=== PATIENT | male | born 1985 | race Caucasian/White ===

== ENCOUNTER 2020-12-17 04:39 | Observation (INO) | payer OTHER, SELFPAY ==
[2020-12-17] VITALS (18 sets, daily range): BP systolic 140–202; BP diastolic 69–188; PULSE 80–96; RESP 16–22; TEMP 36.2–38; O2SAT 97–100; BMI 31.6
--- NOTE | ~2020-12-17 | CT_ITS ---
EXAMINATION: CT abdomen pelvis w con DATE: 12/17/2020 08:36 INDICATION: Diffuse abdominal pain and cyclic vomiting. TECHNIQUE: Computed tomography (CT) of the abdomen and pelvis was performed with 100 mL Omnipaque-350 intravenous contrast. Automated exposure control and iterative reconstruction technique were employe d. The dose-length product was 1020.19 mGy-cm. COMPARISON: 02/13/2016 FINDINGS: Lung bases are clear. Visualized inferior heart is normal. No pericardial or pleural effusion. Liver, gallbladder, spleen, pancreas, bilateral adrenal glands and kidneys are normal. Normal appendix. The re is diffuse wall thickening throughout the colon most prominent in the sigmoid colon and rectum wer e demonstrates slightly greater than simple fluid attenuation. In the ascending and transverse colon. Wall thickening is of slightly lower than fluid attenuation suggestive of fatty infiltration which c ould be related to body habitus or response to recurrent inflammation. There is also seen at the dist al ileum. No bowel obstruction. No pneumatosis, abscess or free intraperitoneal gas or fluid. Bladder is normal. Prostatomegaly. Minimal scattered atherosclerotic ossification along the abdominal aorta. No evident stenosis of the aorta or its major branch vessels. No pathologically enlarged abdominal o r pelvic lymphadenopathy. Mild thoracolumbar spondylosis with small Schmorl's nodes along many of th e endplates. IMPRESSION: 1. Wall thickening of the colon which appears primarily due to fatty infiltration proximally and more prominent with more edematous appearance in the distal colon suspicious for acute on chronic colitis . Differential would include infection, inflammatory bowel disease including ulcerative colitis or Cr ohn's disease or less likely ischemic colitis. Reviewed, dictated and finalized at location A. IMPRESSION: 1. Wall thickening of the colon which appears primarily due to fatty infiltrati on proximally and more prominent with more edematous appearance in the distal c olon suspicious for acute on chronic colitis. Differential would include infect ion, inflammatory bowel disease including ulcerative colitis or Crohn's disease or less likely ischemic colitis.
--- NOTE | 2020-12-17 05:07 | ED.ABDPAIN ---
HPI - Abdominal Pain General Chief Complaint: Abdominal Pain <Toi Roque MD - Last Filed: 12/17/20 16:30> Stated Complaint: n/v abd pain <Toi Roque MD - Last Filed: 12/17/20 16:30> Time Seen by Provider: 12/17/20 04:43 <Toi Roque MD - Last Filed: 12/17/20 16:30> History of Present Illness HPI narrative: 35 yo male w/ h/o cyclic vomiting syndrome presents to the ED for vomiting. He has had vomiting since last night around 2300. This is associated with generalized abdoinal pain. These are the same symptoms he has had from [facility] in the past. <Toi Roque MD - Last Filed: 12/17/20 16:30> Related Data Home Medications: Home Medications Medication Instructions Recorded Confirmed No Home Medications 12/17/20 12/17/20 <Toi Roque MD - Last Filed: 12/17/20 16:30> Allergies/Adverse Reactions: Allergies Allergy/AdvReac Type Severity Reaction Status Date / Time cyclobenzaprine AdvReac Intermediate Dizziness Verified 12/17/20 06:29 <Toi Roque MD - Last Filed: 12/17/20 16:30> Review of Systems Review of Systems: All systems reviewed & are unremarkable except as noted in HPI and below <Toi Rqoue MD - Last Filed: 12/17/20 16:30> Constitutional: Constitutional: Denies fever(s) <Toi Roque MD - Last Filed: 12/17/20 16:30> Cardiovascular: Cardiovascular: Denies chest pain <Toi Roque MD - Last Filed: 12/17/20 16:30> Respiratory: Respiratory: Denies dyspnea <Toi Roque MD - Last Filed: 12/17/20 16:30> Gastrointestinal: Gastrointestinal: Reports as per HPI <Toi Roque MD - Last Filed: 12/17/20 16:30> Genitourinary: Genitourinary: Reports no additional male genitourinary complaints <Toi Roque MD - Last Filed: 12/17/20 16:30> Neurologic: Reports system reviewed and no additional complaints, except as documented <Toi Roque MD - Last Filed: 12/17/20 16:30> [facility] Past Medical History Medical History: Medical History Cyclic vomiting syndrome Depression with anxiety Hiatal hernia noted by EGD HTN (hypertension), benign <Toi Roque MD - Last Filed: 12/17/20 16:30> Surgical History Surgical History: Surgical History Hx of hand surgery <Toi Roque MD - Last Filed: 12/17/20 16:30> Family History Family History: Family History Other Lung cancer <Toi Roque MD - Last Filed: 12/17/20 16:30> Social History Social History: Social History Social History: He lives at home with his and 2 sons. He smokes 3/4 of a pack per day for the past 17 years. He was a heavy alcohol user mostly on weekends but has quit alcohol in August of this year. He is a full code. Nominates his to be the individual who would make medical decisions for him if he is unable. He denies drug use except does smoke marijuana on occasion. Smoking packs per day: 0.5 Smoking cigarettes per day: 10.0 Years smoked: 20 Smoking pack-years: 10.00 Smoking status: Current every day smoker Tobacco type: cigarettes Alcohol intake: never Substance use: former Substance use type: marijuana Living arrangements: with family Gender identity (if verbalized by the patient): Male Spiritual care concerns: No <Toi Roque MD - Last Filed: 12/17/20 16:30> Exam Const: General: no acute distress, alert and ill appearing <Toi Roque MD - Last Filed: 12/17/20 16:30> Orientation/consciousness: patient oriented x3 <Toi Roque MD - Last Filed: 12/17/20 16:30> HENMT: Head: normal to inspection <Toi Roque MD - Last Filed: 12/17/20 16:30> Resp: Effort & Inspection: normal
[2020-12-17] MEDS: PROMETHAZINE HCL 25 MG/ML AMPUL 12.5 MG IV PUSH (05:16)
[2020-12-17] MEDS: HALOPERIDOL LACTATE 5 MG/ML VIAL IV PUSH (05:17)
[2020-12-17] MEDS: LACTATED RINGERS 2,000 ML 999 ML IV CONT (05:23)
[2020-12-17 05:28] LABS: Basophils Percent Auto 0.2 % (0.2-1.2); Hematocrit 48.4 % (42.0-52.0); Immature Granulocyte Absolute 0.08 K/mm3 (0.00-0.031); Immature Granulocyte Percent A 0.4 % (0-0.5); Lymphocytes Absolute Auto 0.96 K/mm3 (0.9-3.2); Lymphocytes Percent Auto 5.1 % (18.3-44.2); Mean Corpuscular HGB Conc 33.1 g/dl (32-36); Mean Corpuscular Hemoglobin 28.3 pg (26-34); Mean Corpuscular Volume 85.5 fl (80-100); Mean Platelet Volume 12.5 fl (7.4-10.4); Monocytes Absolute Auto 0.2 K/mm3 (0.1-0.6); Monocytes Percent Auto 1.1 % (2.6-8.5); Neutrophils Absolute Auto 17.7 K/mm3 (1.3-6.7); Neutrophils Percent Auto 93.2 % (45.5-73.1); Platelet Count Result 301 k/mm3 (150-375); Red Blood Count 5.66 M/mm3 (4.6-6.20); Red Cell Distribution Width 12.6 % (11.5-14.5); White Blood Count 18.9 K/mm3 (4.5-10.0)
--- NOTE | 2020-12-17 05:35 | PC.NURSE ---
Pt voided approx 100cc clear dark yellow urine per urinal. States is not feeling any better but appears much more relaxed and not actively writhing or vomiting.
--- NOTE | 2020-12-17 05:55 | PC.NURSE ---
Pt appears to be asleep on stretcher. Mother at bedside states no further emesis.
[2020-12-17 05:56] LABS: Add Urine Microscopic? YES; Appearance Urine Clear (Clear); Bacteria Urine Trace /hpf; Bilirubin Urine 1+ (Negative); Blood Urine Negative (Negative); Color Urine Amber (Yellow); Glucose Urine UA Negative (Negative); Ketones Urine 2+ mg/dL (Negative); Leukocyte Esterase Ur Negative LEU/UL (Negative); Mucus Urine Heavy /lpf; Nitrate Urine Negative (Negative); Protein Urine 2+ mg/dL (Negative); RBC Urine 0-2 /hpf (0-2); WBC Urine 0-3 /hpf
[2020-12-17 05:57] LABS: Specific Grav Ur 1.034 (1.001-1.035)
--- NOTE | 2020-12-17 06:19 | PC.NURSE ---
Addendum entered by Rolan Riley RN 12/17/20 06:21: Dr. Roque made aware. Original Note: Pt awake now states no relief from meds or IVF. States remains nauseated.
--- NOTE | 2020-12-17 06:30 | PC.NURSE ---
radio technician at bedside attempting blood draw.
[2020-12-17] MEDS: ONDANSETRON INJ 4 MG/2 ML VIAL IV PUSH (06:38)
[2020-12-17] MEDS: LORazepam INJ (*CRX) 2 MG/ML VIAL 1 MG IV PUSH (06:41)
--- NOTE | 2020-12-17 07:03 | PC.NURSE ---
Pt's bp remains elevated, however pt appears to be much more comfortable. Dr. Cunningham made aware.
[2020-12-17] MEDS: SODIUM CHLORIDE 0.9% IV 1,000 ML 999 ML IV CONT (07:08)
--- NOTE | 2020-12-17 07:08 | PC.NURSE ---
Dr. Cunningham made aware of pt's bp being elevated.
--- NOTE | 2020-12-17 07:15 | PC.NURSE ---
Report to STEFFANIE Raphael, to continue care.
[2020-12-17 07:19] LABS: Alanine Aminotransferase 19 U/L (4-50); Albumin Level 4.6 g/dL (3.5-5.1); Alkaline Phosphatase 94 U/L (38-126); Anion Gap 13 mmol/L (8-16); Aspartate Amino Transferase 47 U/L (17-59); Bilirubin,Total 1.3 mg/dL (0.2-1.3); Blood Urea Nitrogen 14 mg/dL (9-20); Calcium 9.5 mg/dL (8.4-10.2); Carbon Dioxide 15 mmol/L (22-30); Chloride 106 mmol/L (98-107); Estimated CRCL calculation 159 ml/min; Estimated Glomerular Filt Rate > 60; Glucose 124 mg/dL (65-110); Lipase 152 U/L (23-300); Sodium 134 mmol/L (137-145)
[2020-12-17 08:29] LABS: Reflex Lactic Acid Yes or No Add Lactic
[2020-12-17 09:05] LABS: Lactic Acid 1.3 mmol/L (0.7-2.1)
--- NOTE | 2020-12-17 11:11 | PC.NURSE ---
This patient, Jonny Khan, was admitted to Medical Room 261-01. Patient/family oriented to hospital policies and general routines including ID bracelet, bed and alarms, visiting hours, pain management, procedures, bathroom and other care routines, personal items, smoking policy, room service/diet, and visiting hours. Information on how to activate the Rapid Response Team has been discussed. Patient/Family are encouraged to report perceived risks to care and to ask questions if they do not understand what they are told or what they should do.
[2020-12-17] MEDS: SODIUM CHLORIDE 0.9% IV 1,000 ML 125 ML IV CONT (11:16)
--- NOTE | 2020-12-17 12:44 | PM.IMHP ---
H&P: HPI History of Present Illness Date/Time: 12/17/20 12:44 Chief Complaint: Nausea and vomiting Narrative: 35yo male with history of cyclic vomiting presents to the ED complaints of nausea and vomiting. He has had a long history of cyclic vomiting. This last episode was 6-8 months ago. He has quit drinking alcohol after he was educated that this might be a trigger. He was doing well until around 11:00 p.m. the night before admission when he developed nausea and vomiting. He has had emesis over 20 times. Vomiting worsened to dry heaves. No hematemesis. No fevers. Does become diaphoretic with chills at times. There is no known trigger. No excessive stress at home or work. He does have abdominal pain which is typical when he has a flare of his cyclic vomiting. The abdominal pain feels like burning and twisting sensation. He does have diarrheal stools but no melena or hematochezia. He does hyperventilate prior to a bout of the emesis. He does get tingling in his fingers when he hyperventilates. No vision changes. No eye pain. No rashes. He has never had a colonoscopy; EGD about 4 yrs ago showing hiatal hernia. Review of systems otherwise was unremarkable. Because of the persistent symptoms, patient presented to the emergency room for evaluation. In the emergency room patient had temperature to 99.9 with elevated blood pressure 202/104. [place] [address] with a left shift. Serum bicarb was 15 with a normal anion gap. Lactic acid was 3.0 but on repeat was 1.3 after fluids. LFTs within normal limits. Urinalysis showed 2+ protein and 2+ ketones. CT abdomen and pelvis showed wall thickening of the colon which appears primarily due to fatty infiltration proximally with more prominent and with more edema to the distal colon suspicious for acute on chronic colitis. Patient was treated with Zosyn and IV fluids. He was given a dose of Ativan, Phenergan and Haldol. He was admitted for further care. He is thirsty now and wants to try clear liquid diet. Patient did have pancolitis noted on CT in 2016. Review of Systems Review of Systems: All systems reviewed & are unremarkable except as noted in HPI and below PMFSH Past Medical History Medical History (Updated 12/17/20 @ 13:08 by José Miguel Mullins MD) Cyclic vomiting syndrome Depression with anxiety Hiatal hernia noted by EGD HTN (hypertension), benign Surgical History Surgical History (Updated 12/17/20 @ 13:00 by José Miguel Mullins MD) Hx of hand surgery Family History Family History (Updated 12/17/20 @ 13:00 by José Miguel Mullins MD) Other Lung cancer Social History Social History (Updated 12/17/20 @ 13:02 by José Miguel Mullins MD) Social History: He lives at home with his and 2 sons. He smokes 3/4 of a pack per day for the past 17 years. He was a heavy alcohol user mostly on weekends but has quit alcohol in August of this year. He is a full code. Nominates his to be the individual who would make medical decisions for him if he is unable. He denies drug use except does smoke marijuana on occasion. Smoking packs per day: 0.5 Smoking cigarettes per day: 10.0 Years smoked: 20 Smoking pack-years: 10.00 Smoking status: Current every day smoker Tobacco type: cigarettes Alcohol intake: never Substance use: former Substance use type: marijuana Living arrangements: with family Gender identity (if verbalized by the patient): Male Spiritual care concerns: No Meds Home Medications and Allergies Home Medications Medication Instructions Recorded Confirmed Type No Home Medications 12/17/20 12/17/20 History Allergies Allergy/AdvReac Type Severity Reaction Status Date / Time cyclobenzaprine AdvReac Intermediate Dizziness Verified 12/17/20 06:29 Vital Signs Vital Signs - 24 hr 12/17/20 05:05 12/17/20 05:06 12/17/20 05:08 Temperature Pulse Rate Respiratory Rate Blood Pressure 152/101 H 164/10
--- NOTE | 2020-12-17 15:25 | WPDGICN ---
Assessment and Plan Assessment and plan (1) Cyclic vomiting syndrome: Code(s): R11.15 - Cyclical vomiting syndrome unrelated to migraine Status: Inactive Assessment and Plan: Patient appears to have clinical cyclic vomiting syndrome. Similar symptoms have been present for 8 years. His episodes all seemed to be very similar. Plan is for IV rehydration. Supportive care for now. He should discontinue marijuana use limited as alcohol use avoid known stress triggers. (2) Colitis: Code(s): K52.9 - Noninfective gastroenteritis and colitis, unspecified Status: Acute Assessment and Plan: Patient has thickening and edema suggested by recent CT scan. Colitis is been included in the differential diagnosis. Patient has no bleeding to substantiate active inflammation. He did have similar thickening of the colon on CT scan 5 years ago. Colonoscopy is suggested to more definitively evaluate this I would advise doing this as an outpatient after his nausea vomiting has resolved so that he can tolerate prep. Plan to schedule outpatient colonoscopy electively. GI Consult Note Consult date/time: 12/17/20 15:25 HPI: Jonny Khan is a 35 year old male I am asked to see at the request of the hospitalist service. Patient has an underlying history of cyclic vomiting syndrome. Patient in usual state of health till yesterday began to have symptoms of nausea vomiting this prompted him to go to the emergency room and subsequently admitted the hospital. Last evening was noted have leukocytosis. A CT scan suggested some edema possible thickening of portions of the colon. Patient states he has had cyclical vomiting syndrome for 8 years. Last seen by our service 5 years ago at this hospital when he also had leukocytosis and CT scan suggested thickening of the colon. Outpatient colonoscopy was suggested but patient has never accomplished this. Patient reports that he drinks alcohol on a routine basis this appears to contribute to his vomiting syndrome and he has lessened the amount alcohol he drinks. Stress is known to be as trigger for his Vomiting. He continues to smoke marijuana but to a lesser degree than he did years ago. He reports that sitting hot shower will sometimes relieved his vomiting. Denies any bleeding or weight loss. Bowel habits are irregular. His family history is noncontributory. He takes no specific medications to alleviate his symptoms. Review of Systems Review of Systems: All systems reviewed & are unremarkable except as noted in HPI and below PMFSH Past Medical History Medical History (Updated 12/17/20 @ 15:28 by Kyle Vang MD) Cyclic vomiting syndrome Depression with anxiety Hiatal hernia noted by EGD HTN (hypertension), benign Surgical History Surgical History (Updated 12/17/20 @ 13:00 by José Miguel Mullins MD) Hx of hand surgery Family History Family History (Updated 12/17/20 @ 13:00 by José Miguel Mullins MD) Other Lung cancer Social History Social History (Updated 12/17/20 @ 13:02 by José Miguel Mullins MD) Social History: He lives at home with his and 2 sons. He smokes 3/4 of a pack per day for the past 17 years. He was a heavy alcohol user mostly on weekends but has quit alcohol in August of this year. He is a full code. Nominates his to be the individual who would make medical decisions for him if he is unable. He denies drug use except does smoke marijuana on occasion. Smoking packs per day: 0.5 Smoking cigarettes per day: 10.0 Years smoked: 20 Smoking pack-years: 10.00 Smoking status: Current every day smoker Tobacco type: cigarettes Alcohol intake: never Substance use: former Substance use type: marijuana Living arrangements: with family Gender identity (if verbalized by the patient): Male Spiritual care concerns: No Meds Home Medications and Allergies Home Medications Medication Instructions Recorded
[2020-12-17] MEDS: ACETAMINOPHEN 325 MG TABLET 650 MG PO (17:30)
--- NOTE | 2020-12-17 18:15 | PC.NURSE ---
Patient stated that he needed to leave due to extinuating circumstances at home. Patient was advised against leaving due to his high white blood cell count, and Dr. Mullins will not be discharging the patient at this time. Per patient he had to leave due to family issues. IV was removed, patient signed AMA form and walked to the elevators by this nurse.
--- NOTE | 2020-12-20 06:42 | PM.DS ---
DS: Admitting Diagnosis Admitting Diagnosis Nausea and vomiting DS: Discharge Diagnosis Discharge Diagnosis (1) Severe sepsis: Code(s): A41.9 - Sepsis, unspecified organism; R65.20 - Severe sepsis without septic shock Status: Acute (2) Colitis: Code(s): K52.9 - Noninfective gastroenteritis and colitis, unspecified Status: Acute (3) Nausea and vomiting: Code(s): R11.2 - Nausea with vomiting, unspecified Status: Acute (4) HTN (hypertension), benign: Code(s): I10 - Essential (primary) hypertension Status: Acute (5) Tobacco abuse: Code(s): Z72.0 - Tobacco use Status: Acute DS: Summary Hospital Course Reason for hospitalization: 35yo male with history of cyclic vomiting presents to the ED complaints of nausea and vomiting. He has had a long history of cyclic vomiting. Please se H&P for details. Hospital Course: Patient was admitted to [address] [place] [id number] scan showing possible colitis. He does have elevated lactate and white count concerning for severe sepsis from colitis. He has a history of pancolitis 5 years ago. He was started on Zosyn. Repeat lactic acid level normal. He has never had a colonoscopy. His nausea and vomiting subsided and he was started on liquid diet and this was advanced. GI consulted since patient most likely needs a colonoscopy at some point. He was educated about the benefits of abstaining from alcohol, tobacco and Marijuana use. Patient has known hypertension and was on treatment at one point but currently not on medications at this time. Plan was to monitor BP and start medication if needed. BCx negative to date. Plan also to check IBD panel but not collected before patient left. Patient stated that he needed to leave due to extenuating circumstances at home. Patient was advised against leaving due to his high white blood cell count. Per patient he had to leave due to family issues. I was called and requested that the patient be discharged with a prescription of Augmentin for his colitis. IV was removed and patient signed out AMA. Status at Discharge Cognitive/behavioral status at discharge: stable Time Spent with Patient Time attestation: Total time spent providing and/or coordinating discharge services: 40 minutes Time spent: Greater than 30 minutes Exam Narrative: AF 99.9 152/81 96 18 99% ra Gen - well-nourished, well-developed male in no acute respiratory distress who is nontoxic-appearing lying semi recumbent in bed HEENT - normocephalic. Atraumatic. Pupils equal round and reactive. Extraocular motions intact. Sclera clear and anicteric. Nares patent. Oropharynx was clear. No oral lesions. Moist mucous membranes. Tongue was midline. Palate buddy symmetrically. No facial asymmetry. Neck - neck was supple. No dominant adenopathy, thyromegaly or masses. 2+ carotid upstrokes without bruits. Chest - lungs are clear to auscultation bilaterally. No wheezes or crackles. CV - heart was regular rate and rhythm. S1-S2. No murmurs gallops or rubs. Abd - abdomen was soft. Nontender. Nondistended. Positive bowel sounds. No organomegaly or masses. Ext - no clubbing, cyanosis or edema. 2+ DP pulses bilaterally. Neuro - patient is alert and oriented x4. Strength is 5/5 in both upper and lower extremities. Cranial nerves 2-12 are intact. Speech is clear. Psych - normal mood and affect. Patient is pleasant and cooperative. Skin - warm and dry. No rashes noted. DS: Data Data Completed and Pending Labs on day of discharge: Preliminary micro results at discharge 12/17/20 09:40 Blood Culture - Preliminary Blood 12/17/20 09:40 Blood Culture - Preliminary Blood Discharge Plan Discharge Attending physician on discharge: José Miguel Mullins Consulting providers: Edward Bravo ; Kyle Vang Patient Disposition: Left Against Medical Advice Patient Instructions: How to Stop Smoking (GEN), Cigarette Smoking and Your H
== END 2020-12-17 18:00 | disposition left against medical advice (07) ==
LOC: ANHED 09:16 → ANH2MED 09:52
PROVIDERS: Emergency Medicine; Admitting Provider Internal Medicine; Emergency Provider Emergency Medicine; Visit Provider Internal Medicine
DX: A41.9 Sepsis, unspecified organism (principal); R65.20 Severe sepsis without septic shock; R11.2 Nausea with vomiting, unspecified; R10.9 Unspecified abdominal pain; R19.7 Diarrhea, unspecified; I10 Essential (primary) hypertension; F17.210 Nicotine dependence, cigarettes, uncomplicated
CPT/HCPCS: 36415; 74177; 80053; 81001; 83605; 83690; 85025; 87040; 96361; 96365; 96375; 99285; A9270; G0378; G0379; J1630; J2060; J2405; J2543; J2550; J7030; J7120; Q9967

== ENCOUNTER 2020-12-19 21:58 | Observation (INO) | payer OTHER, SELFPAY ==
[2020-12-19 22:04] VITALS: BP 151/92; PULSE 88; RESP 20; TEMP 36.1; O2SAT 98
--- NOTE | 2020-12-19 23:15 | ED.NAVMDI ---
HPI - Nausea/Vomiting/Diarrhea General Chief complaint: Nausea/Vomiting/Diarrhea Stated complaint: vomiting Time Seen by Provider: 12/19/20 23:02 History of Present Illness HPI Narrative: 35 yo male w/ h/o cyclic vomiting presents to the ED for vomiting and abdominal pain. He was seen here 2 days ago for the same. He was found to have non infectious colitis. He was admitted ot the hospital, but had to leave prior to discharge due to family issues. He returns today for the same. Related Data Allergies Allergy/AdvReac Type Severity Reaction Status Date / Time cyclobenzaprine AdvReac Intermediate Dizziness Verified 12/19/20 22:09 Review of Systems Review of Systems: All systems reviewed & are unremarkable except as noted in HPI and below PMFSH Past Medical History Medical History Cyclic vomiting syndrome Depression with anxiety Hiatal hernia noted by EGD HTN (hypertension), benign Surgical History Surgical History Hx of hand surgery Family History Family History Other Lung cancer Social History Social History Social History: He lives at home with his and 2 sons. He smokes 3/4 of a pack per day for the past 17 years. He was a heavy alcohol user mostly on weekends but has quit alcohol in August of this year. He is a full code. Nominates his to be the individual who would make medical decisions for him if he is unable. He denies drug use except does smoke marijuana on occasion. Smoking packs per day: 1 Smoking cigarettes per day: 20.0 Years smoked: 20 Smoking pack-years: 20.00 Smoking status: Current every day smoker Tobacco type: cigarettes Alcohol intake: never Substance use: current Substance use type: marijuana Gender identity (if verbalized by the patient): Male Spiritual care concerns: No Exam Const: General: ill appearing Nutritional Appearance: overweight Orientation/consciousness: patient oriented x3 Other: Mild distress HENMT: Head: normal to inspection Face and sinus: dry mucous membranes Resp: Effort & Inspection: normal respiratory effort Auscultation: clear to auscultation bilaterally Cardio: Rate: tachycardic Rhythm: regular rhythm GI: GI Palp: Yes abdominal tenderness and Yes Soft to palpation Skin: General skin exam: pallor Other: diaphoretic Neuro: General: patient oriented x3 Cognition (Neuro): normal cognition Speech: normal speech Extrem: General: normal to inspection Psych: Affect: Anxious affect present Course Vital Signs Vital signs: Vital Signs Temperature 36.1 C L 12/19/20 22:04 Pulse Rate 88 12/19/20 22:04 Respiratory Rate 20 12/19/20 22:04 Blood Pressure 151/92 H 12/19/20 22:04 Pulse Oximetry 98 12/19/20 22:04 Temperature 37.1 C 12/20/20 05:27 Pulse Rate 61 12/20/20 05:27 Respiratory Rate 16 12/20/20 05:27 Blood Pressure 172/70 H 12/20/20 05:27 Pulse Oximetry 99 12/20/20 05:27 MDM - Nausea/Vomiting/Diarrhea Lab Data Result diagrams: 12/19/20 23:29 12/19/20 23:29 Labs: Lab Results 12/19/20 12/19/20 12/19/20 Range/Units 23:29 23:29 23:29 WBC 12.8 H (4.5-10.0) K/mm3 RBC 5.38 (4.6-6.20) M/mm3 Hgb 15.3 (14.0-18.0) g/dL Hct 46.6 (42.0-52.0) % MCV 86.6 (80-100) fl MCH 28.4 (26-34) pg MCHC 32.8 (32-36) g/dl RDW 12.5 (11.5-14.5) % Plt Count 286 (150-375) k/mm3 MPV 11.9 H (7.4-10.4) fl Immature Gran % (Auto) 0.4 (0-0.5) % Neut % (Auto) 85.6 H (45.5-73.1) % Lymph % (Auto) 9.5 L (18.3-44.2) % Daniels % (Auto) 3.8 (2.6-8.5) % Eos % (Auto) 0.1 (0-4.4) % Baso % (Auto) 0.6 (0.2-1.2) % Lymph # (Auto) 1.21 (0.9-3.2) K/mm3 Daniels # (Auto) 0.5 (0.1-0.6) K/
[2020-12-19] MEDS: PROMETHAZINE HCL 25 MG/ML AMPUL 12.5 MG IV PUSH (23:35)
[2020-12-19] MEDS: LORazepam INJ (*CRX) 2 MG/ML VIAL 1 MG IV PUSH (23:35)
[2020-12-19] MEDS: DEXTROSE 5%/0.45% SOD CHL 1,000 ML 1000 ML IV CONT (23:35)
[2020-12-19 23:42] LABS: Basophils Absolute Auto 0.1 K/mm3 (0.0-0.1); Basophils Percent Auto 0.6 % (0.2-1.2); Eosinophils Percent Auto 0.1 % (0-4.4); Hematocrit 46.6 % (42.0-52.0); Hemoglobin 15.3 g/dL (14.0-18.0); Immature Granulocyte Absolute 0.05 K/mm3 (0.00-0.031); Immature Granulocyte Percent A 0.4 % (0-0.5); Lymphocytes Absolute Auto 1.21 K/mm3 (0.9-3.2); Lymphocytes Percent Auto 9.5 % (18.3-44.2); Mean Corpuscular HGB Conc 32.8 g/dl (32-36); Mean Corpuscular Hemoglobin 28.4 pg (26-34); Mean Corpuscular Volume 86.6 fl (80-100); Mean Platelet Volume 11.9 fl (7.4-10.4); Monocytes Absolute Auto 0.5 K/mm3 (0.1-0.6); Monocytes Percent Auto 3.8 % (2.6-8.5); Neutrophils Percent Auto 85.6 % (45.5-73.1); Platelet Count Result 286 k/mm3 (150-375); Red Blood Count 5.38 M/mm3 (4.6-6.20); Red Cell Distribution Width 12.5 % (11.5-14.5); White Blood Count 12.8 K/mm3 (4.5-10.0)
[2020-12-19 23:48] LABS: Add Urine Microscopic? YES; Appearance Urine Clear (Clear); Bacteria Urine Trace /hpf; Bilirubin Urine Negative (Negative); Blood Urine Negative (Negative); Color Urine Amber (Yellow); Glucose Urine UA Negative (Negative); Ketones Urine 1+ mg/dL (Negative); Leukocyte Esterase Ur Negative LEU/UL (Negative); Mucus Urine Heavy /lpf; Nitrate Urine Negative (Negative); Protein Urine 1+ mg/dL (Negative); RBC Urine 0-2 /hpf (0-2); Specific Grav Ur 1.029 (1.001-1.035); Squamous Epithelial Cell Urine Few /hpf (Few); WBC Urine 0-3 /hpf
[2020-12-19 23:53] LABS: Alanine Aminotransferase 21 U/L (4-50); Albumin Level 4.8 g/dL (3.5-5.1); Alkaline Phosphatase 82 U/L (38-126); Anion Gap 11 mmol/L (8-16); Aspartate Amino Transferase 32 U/L (17-59); Bilirubin,Total 0.8 mg/dL (0.2-1.3); Blood Urea Nitrogen 12 mg/dL (9-20); Calcium 10.1 mg/dL (8.4-10.2); Carbon Dioxide 21 mmol/L (22-30); Chloride 110 mmol/L (98-107); Estimated CRCL calculation 140 ml/min; Estimated Glomerular Filt Rate > 60; Glucose 130 mg/dL (65-110); Lipase 137 U/L (23-300); Potassium 3.4 mmol/L (3.4-5.0); Sodium 142 mmol/L (137-145)
[2020-12-20 00:17] VITALS: BP 179/102; PULSE 69; RESP 18; O2SAT 99
[2020-12-20] MEDS: MORPHINE SULFATE (*CRX) 2 MG/ML INJ IV PUSH (00:32)
[2020-12-20] MEDS: ONDANSETRON INJ 4 MG/2 ML VIAL IV PUSH ×2 (00:50→04:52)
[2020-12-20 01:25] VITALS: BP 166/95; PULSE 63; RESP 18; O2SAT 97
[2020-12-20] MEDS: LACTATED RINGERS 1,000 ML 125 ML IV CONT ×2 (01:45→08:55)
[2020-12-20 01:52] VITALS: BP 165/95; PULSE 61; RESP 18; TEMP 37.2; O2SAT 100; BMI 32.5
[2020-12-20 01:58] VITALS: BP 165/95
[2020-12-20 02:00] VITALS: BP 154/97; BP 156/96
--- NOTE | 2020-12-20 02:02 | PC.NURSE ---
This patient, Jonny Khan, was admitted to Medical Room 250-01. Patient/family oriented to hospital policies and general routines including ID bracelet, bed and alarms, visiting hours, pain management, procedures, bathroom and other care routines, personal items, smoking policy, room service/diet, and visiting hours. Information on how to activate the Rapid Response Team has been discussed. Patient/Family are encouraged to report perceived risks to care and to ask questions if they do not understand what they are told or what they should do.
--- NOTE | 2020-12-20 04:11 | PM.IMHP ---
H&P: HPI History of Present Illness Date/Time: 12/20/20 04:11 Chief Complaint: NAUSEA AND VOMITING Narrative: THIS IS A 37-YEAR-OLD MALE WITH PAST MEDICAL HISTORY SIGNIFICANT FOR CYCLICAL NAUSEA AND VOMITING, CHRONIC ABDOMINAL PAIN, TOBACCO USE, ALCOHOL USE. PATIENT PRESENTED TO THE EMERGENCY ROOM DUE TO NAUSEA VOMITING AND WORSENING ABDOMINAL PAIN FOR THE LAST 2 DAYS OR SO HAS NOT BEEN ABLE TO EAT OR KEEP ANYTHING DOWN HE HAS NOT HAD ANY FEVERS CHILLS NO HEMATEMESIS STATED HE HAD SOME DIARRHEA WELL. PATIENT HAS HAD THIS ISSUE FOR THE LAST 8 YEARS OR SO HE SMOKES MARYJUANA BUT HAS CUT DOWN SIGNIFICANTLY IN THE LAST COUPLE OF YEARS OR SO THE USE OF THIS SUBSTANCE. PATIENT IS SUPPOSED TO FOLLOW-UP IN OUTPATIENT SETTING WITH GASTROENTEROLOGY. PATIENT HAS BEEN PLACED IN OBSERVATION STATUS. PRELIMINARY WORKUP WAS SIGNIFICANT FOR LEUKOCYTOSIS AND CT OF ABDOMEN AND PELVIS WITH DISTAL COLITIS. Review of Systems Review of Systems: NAUSEA VOMITING ABDOMINAL PAIN DIARRHEA Constitutional: Constitutional: Denies chills, Denies fever(s) and Denies malaise Eyes: Eyes: Denies change in vision ENT: Denies dysphagia, Denies nasal congestion, Denies nasal discharge, Denies nasal obstruction and Denies odynophagia Cardiovascular: Cardiovascular: Denies chest pain, Denies irregular heart rhythm, Denies radiating jaw, neck or arm pain, Denies palpitations and Denies orthopnea Respiratory: Respiratory: Denies cough and Denies dyspnea Gastrointestinal: Gastrointestinal: Reports abdominal pain, Reports diarrhea, Reports nausea and Reports vomiting Genitourinary: Genitourinary: Reports no additional male genitourinary complaints Musculoskeletal: Musculoskeletal: Reports no additional musculoskeletal complaints Integumentary/Breasts: Skin/Breast: Reports system reviewed and no additional complaints, except as docu Neurologic: Reports system reviewed and no additional complaints, except as documented Psychiatric: Psychiatric: Reports no additional psychiatric complaints Endocrine: Endocrine: Reports no additional endocrine complaints Hematologic/Lymphatic: Hematologic/Lymphatic: Reports no additional hematologic/lymphatic complaints Allergic/Immunologic: Allergic/Immunologic: Reports no additional allergic/immunologic complaints PMFSH Past Medical History Medical History Cyclic vomiting syndrome Depression with anxiety Hiatal hernia noted by EGD HTN (hypertension), benign Surgical History Surgical History Hx of hand surgery Family History Family History Other Lung cancer Social History Social History Social History: He lives at home with his and 2 sons. He smokes 3/4 of a pack per day for the past 17 years. He was a heavy alcohol user mostly on weekends but has quit alcohol in August of this year. He is a full code. Nominates his to be the individual who would make medical decisions for him if he is unable. He denies drug use except does smoke marijuana on occasion. Smoking packs per day: 1 Smoking cigarettes per day: 20.0 Years smoked: 20 Smoking pack-years: 20.00 Smoking status: Current every day smoker Tobacco type: cigarettes Alcohol intake: never Substance use: current Substance use type: marijuana Gender identity (if verbalized by the patient): Male Spiritual care concerns: No Meds Home Medications and Allergies Home Medications Medication Instructions Recorded Confirmed Type amlodipine [Norvasc] 10 mg PO DAILY 30 Days #30 tablet 12/20/20 Rx Allergies Allergy/AdvReac Type Severity Reaction Status Date / Time cyclobenzaprine AdvReac Intermediate Dizziness Verified 12/19/20 22:09 Vital Signs Vital Signs - 24 hr 12/19/20 22:04 12/20/20 00:1
[2020-12-20 05:27] VITALS: BP 172/70; PULSE 61; RESP 16; TEMP 37.1; O2SAT 99
[2020-12-20] MEDS: PANTOPRAZOLE SODIUM IV 40 MG VIAL IV PUSH (08:49)
--- NOTE | 2020-12-20 13:44 | PM.DS ---
DS: Admitting Diagnosis Admitting Diagnosis Cyclical vomiting syndrome DS: Discharge Diagnosis Discharge Diagnosis (1) Cyclic vomiting syndrome: Code(s): R11.15 - Cyclical vomiting syndrome unrelated to migraine Status: Acute Assessment and Plan: Patient like to follow-up with credit risk specialist is arranging outpatient. Recommendations from our credit risk specialist was for outpatient colonoscopy and for marijuana cessation (2) HTN (hypertension), benign: Code(s): I10 - Essential (primary) hypertension Status: Acute Assessment and Plan: Patient blood pressure was elevated at 170 systolic, patient will be discharged with new medication amlodipine 10 mg daily. DS: Summary Hospital Course Reason for hospitalization: Intractable nausea vomiting Hospital Course: Patient is a 32-year-old male with past medical history of cyclical vomiting syndrome diagnosed 8 years ago, hiatal hernia, marijuana abuse who presents to the ED with complaints of nausea and vomiting. He states what typically works for him is getting a strong concoction of benzodiazepines and opiates which will make him sleep and afterwards when he wakes up his symptoms are gone. He has been dealing with cyclic vomiting syndrome over last 8 years and has cut down his marijuana use significantly, however still is smoking 1-2 hits of marijuana every couple days. Denies any alcohol use and tries to minimize stress. He was here recently a few days ago and left AMA to take care of his kids. Last hospitalization gastroenterology recommended outpatient colonoscopy and marijuana cessation. Patient would like to establish care with credit risk specialist outpatient, his mother has made him an appointment. He would like to continue his GI workup and care with that provider. His symptoms have completely resolved by the time he came to the medical floor. He was still hypertensive blood pressure systolic 170s. He will be discharged home with amlodipine 10 mg daily to follow-up with PCP which he will establish care with. I informed him to take daily blood pressures so that he has a blood pressure log to help adjust medications. He will follow-up with the credit risk specialist appointment that he has made for colonoscopy and GI workup. Patient's vitals stable, labs stable, patient stable for discharge. Patient understands agrees with plan. Time spent discussing smoking cessation with patient: 3 to 10 minutes Status at Discharge Cognitive/behavioral status at discharge: At baseline Functional status at discharge: independent ambulation Overall status at discharge: patient is back to baseline Time Spent with Patient Time attestation: Total time spent providing and/or coordinating discharge services:35 Time spent: Greater than 30 minutes Exam Narrative: - GENERAL: No acute distress. Well-nourished. - EYES: EOMI. Anicteric. - HENT: Moist mucous membranes. - LUNGS: Clear to auscultation bilaterally, no wheezing, rhonchi, or rales. - CARDIOVASCULAR: Regular rate and rhythm. No murmur. No JVD. - ABDOMEN: Soft, non-tender and non-distended. No palpable masses. - EXTREMITIES: No edema. Peripheral pulses 2+. Non-tender. - NEUROLOGIC: No focal neurological deficits. CN II-XII grossly intact. - PSYCHIATRIC: Awake, Alert and oriented x 3. Appropriate mood and affect. - SKIN: No rashes or lesions. Warm. - LYMPH: No cervical lymphadenopathy. DS: Data Data Completed and Pending Labs on day of discharge: Labs from last 24 hours 12/19/20 12/19/20 12/19/20 23:29 23:29 23:29 WBC 12.8 H RBC 5.38 Hgb 15.3 Hct 46.6 MCV 86.6 MCH 28.4 MCHC 32.8 RDW 12.5 Plt Count 286 MPV 11.9 H Immature Gran % (Auto) 0.4 Neut % (Auto) 85.6 H Lymph % (Auto) 9.5 L [place] % (Auto) 3.8 Eos % (Auto) 0.1 Baso % (Auto) 0.6 Lymph # (Auto) 1.21 [place] # (Auto) 0.5 Eos # (Auto) 0.0 Baso # (Auto) 0.1 Abs Immat Gran (auto) 0.05 H Absolute
[2020-12-20] MEDS: amLODIPine BESYLATE 5 MG TABLET 10 MG PO (14:36)
== END 2020-12-20 14:54 | disposition home or self-care (01) ==
LOC: ANHED 23:56 → ANH2MED 12-20 03:05
PROVIDERS: Admitting Provider Internal Medicine; Emergency Provider Emergency Medicine; Visit Provider Student in an Organized Health Care Education/Training Program
DX: R11.15 Cyclical vomiting syndrome unrelated to migraine (principal); I10 Essential (primary) hypertension; K44.9 Diaphragmatic hernia without obstruction or gangrene; F41.8 Other specified anxiety disorders; F17.210 Nicotine dependence, cigarettes, uncomplicated; F12.90 Cannabis use, unspecified, uncomplicated
CPT/HCPCS: 36415; 80053; 81001; 83690; 85025; 96361; 96365; 96374; 96375; 96376; 99285; A9270; C9113; G0378; G0379; J0131; J2060; J2270; J2405; J2550; J7120

== ENCOUNTER 2021-11-12 09:16 | Emergency (ER) | payer OTHER, SELFPAY ==
[2021-11-12 09:20] VITALS: BP 171/97; PULSE 77; RESP 18; TEMP 36.4; O2SAT 100
[2021-11-12 09:36] LABS: Basophils Percent Auto 0.2 % (0.2-1.2); Hematocrit 46.1 % (42.0-52.0); Hemoglobin 15.6 g/dL (14.0-18.0); Immature Granulocyte Absolute 0.04 K/mm3 (0.00-0.031); Immature Granulocyte Percent A 0.3 % (0-0.5); Lymphocytes Absolute Auto 0.94 K/mm3 (0.9-3.2); Lymphocytes Percent Auto 7.4 % (18.3-44.2); Mean Corpuscular HGB Conc 33.8 g/dl (32-36); Mean Corpuscular Hemoglobin 28.4 pg (26-34); Mean Corpuscular Volume 83.8 fl (80-100); Mean Platelet Volume 11.8 fl (7.4-10.4); Monocytes Absolute Auto 0.2 K/mm3 (0.1-0.6); Monocytes Percent Auto 1.5 % (2.6-8.5); Neutrophils Absolute Auto 11.4 K/mm3 (1.3-6.7); Neutrophils Percent Auto 90.6 % (45.5-73.1); Platelet Count Result 282 k/mm3 (150-375); Red Cell Distribution Width 13.2 % (11.5-14.5); White Blood Count 12.6 K/mm3 (4.5-10.0)
[2021-11-12 09:47] LABS: Alanine Aminotransferase 12 U/L (6-50); Albumin Level 5.3 g/dL (3.5-5.1); Alkaline Phosphatase 87 U/L (38-126); Anion Gap 13 mmol/L (8-16); Aspartate Amino Transferase 22 U/L (17-59); Bilirubin,Total 0.6 mg/dL (0.2-1.3); Blood Urea Nitrogen 23 mg/dL (9-20); Calcium 9.8 mg/dL (8.4-10.2); Carbon Dioxide 20 mmol/L (22-30); Chloride 109 mmol/L (98-107); Estimated CRCL calculation 137 ml/min; Estimated Glomerular Filt Rate > 60; Glucose 152 mg/dL (65-110); Lipase 42 U/L (23-300); Potassium 4.2 mmol/L (3.4-5.0); Sodium 142 mmol/L (137-145)
--- NOTE | 2021-11-12 10:35 | ED.NAVMDI ---
HPI - Nausea/Vomiting/Diarrhea General Chief complaint: Nausea/Vomiting/Diarrhea Stated complaint: vomiting Time Seen by Provider: 11/12/21 10:17 History of Present Illness HPI Narrative: 36-year-old male here for evaluation of nausea and vomiting for the past 10 hours. Patient states that he has vomited more times and he is able to count, but denies any blood in his vomit. Patient tells me he has a history of cyclic vomiting syndrome but this has been controlled for the past year. He did smoke marijuana last night which he tells me triggers his vomiting. He tells me the only thing that helps his vomiting is xanax and dilaudid. Unable to find records of him being given this medication. No alcohol use for over a year. Additionally reports chronic abdominal pain; he has seen GI for this in the past and has had a scope that did not show etiology for vomiting or pain. Denies acute on chronic abdominal pain today. No blood in stools, fevers, chills, constipation. Related Data Allergies Allergy/AdvReac Type Severity Reaction Status Date / Time cyclobenzaprine AdvReac Intermediate Dizziness Verified 12/19/20 22:09 Review of Systems Review of Systems: Gen: Denies fevers or chills Eyes: Denies eye pain or visual change ENT: Denies congestion Respiratory: Denies shortness of breath or cough CV: Denies chest pain or palpitations GI: Reports nausea, vomiting, chronic abdominal pain denies burning, urgency, frequency or hematuria Musculoskeletal: Denies back pain or muscle pain Neuro: Denies numbness, tingling, weakness or focal weakness Skin: Denies rash Except as documented, all other systems reviewed and negative [facility] Past Medical History Medical History Cyclic vomiting syndrome Depression with anxiety Hiatal hernia noted by EGD HTN (hypertension), benign Surgical History Surgical History Hx of hand surgery Family History Family History Other Lung cancer Social History Social History Social History: He lives at home with his and 2 sons. He smokes 3/4 of a pack per day for the past 17 years. He was a heavy alcohol user mostly on weekends but has quit alcohol in August of this year. He is a full code. Nominates his to be the individual who would make medical decisions for him if he is unable. He denies drug use except does smoke marijuana on occasion. Smoking packs per day: 1 Smoking cigarettes per day: 20.0 Years smoked: 20 Smoking pack-years: 20.00 Smoking status: Current every day smoker Tobacco type: cigarettes Alcohol intake: never Substance use: current Substance use type: marijuana Gender identity (if verbalized by the patient): Male Spiritual care concerns: No Exam Narrative: APPEARANCE: Uncomfortable appearing Head: Normocephalic and atraumatic. EYES: PERRLA/EOMI, conjunctivae clear NOSE: No nasal drainage. EARS: External ear normal in appearance. THROAT: Oropharynx is clear. Mucous membranes are moist. NECK: Supple. No adenopathy, no masses. RESPIRATORY: Airway patent, respirations nonlabored. Clear to auscultation bilaterally, no rales, rhonchi, wheezing. CARDIOVASCULAR: Regular rate and rhythm without murmurs, rubs, or gallops. ABDOMINAL: Normoactive bowel sounds. Soft, nontender, nondistended. No rebound tenderness or guarding. MUSCULOSKELETAL: Extremities are warm and well-perfused. Moves all extremities well. No edema. NEURO: Normal speech. No focal neurologic deficits. SKIN: Skin is warm and dry. No rashes. PSYCHIATRIC: Normal affect/mood. Course Vital Signs Vital signs: Vital Signs Temperature 97.6 F 11/12/21 09:20 Pulse Rate 77 11/12/21 09:20 Respiratory Rate 18 11/12/21 09:20 Blood Pressure 171/97 H 11/12
[2021-11-12] MEDS: LACTATED RINGERS 1,000 ML 999 ML IV CONT ×2 (11:01→11:44)
[2021-11-12] MEDS: ONDANSETRON INJ 4 MG/2 ML VIAL IV PUSH (11:01)
[2021-11-12] MEDS: MORPHINE SULFATE (*CRX) 4 MG/ML INJ IV PUSH (11:01)
--- NOTE | 2021-11-12 11:08 | PC.NURSE ---
Patient asked parts data writer to turn off the lights, told his mother to leave, turn the lights off, and let him sleep for 45 minutes and stated, magically after that I'll be all better. Patient's mother left the room, parts data writer turned out the lights, closed the door, positioned patient's bed so he was comfortable and left the room with the door closed.
--- NOTE | 2021-11-12 11:11 | PC.NURSE ---
Patient care report given to STEFFANIE Mcginnis. All questions answered at this time.
--- NOTE | 2021-11-12 11:20 | PC.NURSE ---
Patient asked for urine sample at this time, declines straight cath but will attempt to give urine.
[2021-11-12 11:55] VITALS: BP 155/99; PULSE 65; RESP 17; O2SAT 99
[2021-11-12] MEDS: METOCLOPRAMIDE HCL INJ 10 MG/2 ML VIAL IV PUSH (11:55)
[2021-11-12] MEDS: diphenhydrAMINE HCl INJ 50 MG/ML VIAL 12.5 MG IV PUSH (11:55)
[2021-11-12 12:05] LABS: Appearance Urine Clear (Clear); Bilirubin Urine 2+ (Negative); Blood Urine Negative (Negative); Color Urine Amber (Yellow); Glucose Urine UA Negative (Negative); Ketones Urine 4+ mg/dL (Negative); Leukocyte Esterase Ur Negative LEU/UL (Negative); Nitrate Urine Negative (Negative); Protein Urine 1+ mg/dL (Negative); Specific Grav Ur 1.025 (1.001-1.035); Urobilinogen Urine 0.2 mg/dL (<2.0); pH Urine 6.5 (5.0-9.0)
[2021-11-12 12:07] LABS: Mucus Urine Moderate /lpf; Squamous Epithelial Cell Urine Occasional /hpf (Few); WBC Urine 0-3 /hpf
[2021-11-12 12:13] LABS: Add Urine Microscopic? YES
[2021-11-12 14:05] VITALS: BP 139/76; PULSE 89; RESP 18; O2SAT 99
== END 2021-11-12 14:06 | disposition home or self-care (01) ==
PROVIDERS: Emergency Provider Emergency Medicine
DX: R11.15 Cyclical vomiting syndrome unrelated to migraine (principal); E86.0 Dehydration; I10 Essential (primary) hypertension; F17.210 Nicotine dependence, cigarettes, uncomplicated
CPT/HCPCS: 36415; 80053; 81001; 83690; 85025; 96361; 96374; 96375; 99284; J1200; J2270; J2405; J2765; J7120

== ENCOUNTER 2022-04-28 02:35 | Emergency (ER) | payer OTHER, SELFPAY ==
[2022-04-28 02:42] VITALS: BP 138/102; PULSE 80; RESP 16; TEMP 36.7; O2SAT 98
--- NOTE | 2022-04-28 03:02 | ED.PSYCH ---
HPI - Psych General Chief Complaint: Psychiatric Symptoms Stated Complaint: si x 5 min, now not si/hi Time Seen by Provider: 04/28/22 03:02 Source: patient Mode of arrival: EMS Limitations: no limitations History of Present Illness HPI Narrative: Patient is a 36-year-old male with a history of cyclical vomiting syndrome presenting to the emergency department for evaluation of depression type symptoms, fleeting suicidal ideation. Patient states that he was at home speaking with his fianc?e, that they have had a hard time financially, living [place] [facility] and on the verge of homelessness. Patient states that for a few minutes he voiced that maybe he should not be around anymore. Patient's fianc? panicked, calling 911. Patient denies current suicidal ideation. He denies suicidal plan. Patient has lived to well and has good family support and fianc? and son. Patient states that he would never end his life. Patient states that he declined transport but his fianc?e made him come to the emergency department. He denies alcohol or drug use. Patient reports a history of alcoholism but stated that that was known to trigger his cyclical vomiting syndrome, thus he stopped drinking several years ago. Patient denies any headache, chest pain, abdominal pain. He reports history of anxiety and depression. Related Data Allergies Allergy/AdvReac Type Severity Reaction Status Date / Time cyclobenzaprine AdvReac Intermediate Dizziness Verified 12/19/20 22:09 Review of Systems Review of Systems: CONSTITUTIONAL: Denies fever, chills, or sweats. EYES: Denies visual changes, redness, or discharge. ENT: Denies rhinorrhea, congestion, sore throat, or otalgia. CARDIOVASCULAR: Denies chest pain, palpitations, or edema. RESPIRATORY: Denies cough or dyspnea. GASTROINTESTINAL: Denies abdominal pain, nausea, vomiting, or diarrhea. GENITOURINARY: Denies dysuria or hematuria. SKIN: Denies rash or itching. MUSCULOSKELETAL: Denies back pain, joint pain, or myalgia. NEUROLOGIC: Denies headache, numbness, or weakness. PSYCHIATRIC: Reports anxiety and depression, denies suicidal ideation, homicidal ideation PMFSH Past Medical History Medical History (Updated 04/28/22 @ 03:26 by Tabitha Fatima MD) Cyclic vomiting syndrome Depression with anxiety Hiatal hernia noted by EGD HTN (hypertension), benign Surgical History Surgical History Hx of hand surgery Family History Family History Other Lung cancer Social History Social History Social History: He lives at home with his and 2 sons. He smokes 3/4 of a pack per day for the past 17 years. He was a heavy alcohol user mostly on weekends but has quit alcohol in August of this year. He is a full code. Nominates his to be the individual who would make medical decisions for him if he is unable. He denies drug use except does smoke marijuana on occasion. Smoking packs per day: 1 Smoking cigarettes per day: 20.0 Years smoked: 20 Smoking pack-years: 20.00 Smoking status: Current every day smoker Tobacco type: cigarettes Alcohol intake: never Substance use: current Substance use type: marijuana Gender identity (if verbalized by the patient): Male Spiritual care concerns: No Exam Narrative: GENERAL: Awake, alert, conversant HEAD: Normocephalic, atraumatic. EYES: PERRLA and EOMI. ENT: Nares clear, no rhinorrhea or epistaxis. Mucous membranes moist. NECK: Supple. CHEST: No respiratory distress, breathing even and non labored HEART: Regular rate, sinus rhythm ABDOMEN:Non distended, non tender EXTREMITIES: Normal range of motion. No edema. SKIN: Warm, dry, no rash. NEURO:No focal deficits. Alert and oriented x3 Psych: Denies suicidal or homicidal ideation Course Vital Signs Vital signs: Vital Sign
[2022-04-28] MEDS: ACETAMINOPHEN 500 MG TABLET 1000 MG PO (03:45)
--- NOTE | 2022-04-28 03:45 | PC.NURSE ---
SCANNER NOT WORKING IN H2/H3. PT DOUBLE CHECKED TYLENOL
[2022-04-28 03:52] VITALS: BP 126/90; PULSE 70; RESP 18; O2SAT 100
== END 2022-04-28 03:56 | disposition home or self-care (01) ==
PROVIDERS: Emergency Provider Emergency Medicine
DX: F32.A Depression, unspecified (principal); I10 Essential (primary) hypertension; F17.210 Nicotine dependence, cigarettes, uncomplicated
CPT/HCPCS: 99282; A9270

== ENCOUNTER 2023-01-26 15:25 | Emergency (ER) | payer OTHER, SELFPAY ==
--- NOTE | ~2023-01-26 | CT_ITS ---
EXAMINATION: CT abdomen pelvis w con INDICATION: Diffuse abdominal pain TECHNIQUE: Computed tomographic images of the abdomen and pelvis were obtained after the administrati on of 100 cc of Omnipaque 350 intravenous contrast. The dose-length product (DLP) was 813.82 mGy-cm. Automated exposure control and iterative reconstruction technique were employed. COMPARISON: 12/17/2020 FINDINGS: The lung bases are clear. The heart size is normal. The liver, spleen, pancreas, gallbladde r, and adrenal glands are normal. The kidneys are unremarkable. No pathologically enlarged abdominal or pelvic lymph nodes are identified. There is no free intraperitoneal gas or evidence of bowel obstr uction. The appendix is normal. There is chronic submucosal fat deposition in the large and small bow el which can be seen in the setting of inflammatory bowel disease. There is mild lumbar spondylosis. IMPRESSION: 1. No CT correlate for the patient's symptoms. Reviewed, dictated and finalized at location F.
[2023-01-26 15:28] VITALS: BP 137/96; PULSE 80; RESP 20; TEMP 36.6; O2SAT 99
--- NOTE | 2023-01-26 17:50 | ECG_ITS ---
Measurements Intervals [place] Rate: 70 P: 13 UT: 147 QRS: 55 QRSD: 93 T: 43 QT: 417 QTc: 453 Interpretive Statements SINUS RHYTHM WITH SINUS ARRHYTHMIA MINIMAL Q WAVES- LAT/HIGH LAT LEADS BASELINE ARTIFACT- I, II, III, AVR, AVL, AVF BORDERLINE ECG NO PREVIOUS ECG AVAILABLE FOR COMPARISON Electronically Signed On 01-26-2023 20:40:30 CDT by Wali Hobson D.O.
--- NOTE | 2023-01-26 17:55 | ED.NAVMDI ---
HPI - Nausea/Vomiting/Diarrhea General Chief complaint: Nausea/Vomiting/Diarrhea Stated complaint: I have cyclic vomiting syndrome. Time Seen by Provider: 01/26/23 17:27 Source: patient and RN notes reviewed Mode of arrival: ambulatory Limitations: no limitations History of Present Illness HPI Narrative: This is a 37 year old male with history of cyclic vomiting who presents for evaluation of nausea and vomiting. Patient states he woke up this morning at 9 am with nausea and vomiting. He reports burning mid abdominal pain. He reports this is similar to episodes of cyclic vomiting. He states he has had colonoscopy and EGD in the past without a cause. It sounds like these test were done years ago and he has not had follow up in a while. HE reports having cyclic vomiting for 10 years. Related Data Allergies Allergy/AdvReac Type Severity Reaction Status Date / Time cyclobenzaprine AdvReac Intermediate Dizziness Verified 12/19/20 22:09 Review of Systems Constitutional: Constitutional: Denies weakness Cardiovascular: Cardiovascular: Denies syncope, Denies rapid heart rate, Denies irregular heart rhythm, Denies leg edema and Denies dyspnea Respiratory: Respiratory: Denies chest congestion, Denies hemoptysis, Denies excessive phlegm production and Denies dyspnea Gastrointestinal: Gastrointestinal: Reports abdominal pain, Denies hematochezia, Denies diarrhea, Reports nausea and Reports vomiting Genitourinary: Genitourinary: Denies hematuria, Denies dysuria, Denies penile discharge and Denies testicular pain Musculoskeletal: Musculoskeletal: Denies joint swelling, Denies loss of height and Denies muscle weakness Neurologic: Denies syncope, Denies focal weakness and Denies weakness Psychiatric: Psychiatric: Reports anxiety PMFSH Past Medical History Medical History Cyclic vomiting syndrome Depression with anxiety Hiatal hernia noted by EGD HTN (hypertension), benign Surgical History Surgical History Hx of hand surgery Family History Family History Other Lung cancer Social History Social History Social History: He lives at home with his and 2 sons. He smokes 3/4 of a pack per day for the past 17 years. He was a heavy alcohol user mostly on weekends but has quit alcohol in August of this year. He is a full code. Nominates his to be the individual who would make medical decisions for him if he is unable. He denies drug use except does smoke marijuana on occasion. Smoking packs per day: 1 Smoking cigarettes per day: 20.0 Years smoked: 20 Smoking pack-years: 20.00 Smoking status: Current every day smoker Tobacco type: cigarettes Alcohol intake: never Substance use: current Substance use type: marijuana Living arrangements: with family Gender identity (if verbalized by the patient): Male Spiritual care concerns: No Exam Const: General: no acute distress and alert Nutritional Appearance: well nourished Orientation/consciousness: patient oriented x3 Limitations: no limitations HENMT: Head: normal to inspection Throat: posterior oropharynx normal and uvula midline Eyes: EOM: EOMs intact bilaterally Chest: Chest palpation & inspection: normal inspection of the chest Resp: Effort & Inspection: normal respiratory effort Auscultation: clear to auscultation bilaterally Cardio: Rate: regular rate Rhythm: regular rhythm Heart sounds: no murmurs GI: GI Palp: Yes Soft to palpation, Yes Tenderness to palpation present (GI), No Guarding due to palpation present (GI) and No Rigid due to palpation Auscultation: normal bowel sounds Skin: General skin exam: normal color Rashes: no rashes Neuro: General: patient oriented x3, moves all extremities and CN's II-XI intact b
[2023-01-26] MEDS: HALOPERIDOL LACTATE 5 MG/ML VIAL IM (18:06)
[2023-01-26] MEDS: LORazepam INJ (*CRX) 2 MG/ML VIAL 1 MG IV PUSH (18:10)
[2023-01-26] MEDS: LACTATED RINGERS 1,000 ML 999 ML IV CONT ×2 (18:10→18:11)
[2023-01-26 18:15] LABS: Basophils Absolute Auto 0.1 K/mm3 (0.0-0.1); Basophils Percent Auto 0.2 % (0.2-1.2); Hematocrit 45.6 % (42.0-52.0); Hemoglobin 15.3 g/dL (14.0-18.0); Immature Granulocyte Absolute 0.09 K/mm3 (0.00-0.031); Immature Granulocyte Percent A 0.4 % (0-0.5); Lymphocytes Absolute Auto 0.92 K/mm3 (0.9-3.2); Lymphocytes Percent Auto 4.5 % (18.3-44.2); Mean Corpuscular HGB Conc 33.6 g/dl (32-36); Mean Corpuscular Hemoglobin 28.7 pg (26-34); Mean Corpuscular Volume 85.4 fl (80-100); Mean Platelet Volume 11.7 fl (7.4-10.4); Monocytes Absolute Auto 0.4 K/mm3 (0.1-0.6); Monocytes Percent Auto 1.8 % (2.6-8.5); Neutrophils Absolute Auto 19.1 K/mm3 (1.3-6.7); Neutrophils Percent Auto 93.1 % (45.5-73.1); Platelet Count Result 294 k/mm3 (150-375); Red Blood Count 5.34 M/mm3 (4.6-6.20); Red Cell Distribution Width 12.4 % (11.5-14.5); White Blood Count 20.6 K/mm3 (4.5-10.0)
[2023-01-26 18:23] LABS: Appearance Urine Clear (Clear); Bacteria Urine None Seen /hpf; Bilirubin Urine Negative (Negative); Blood Urine Negative (Negative); Color Urine Dark Yellow (Yellow); Glucose Urine UA Negative (Negative); Ketones Urine 2+ mg/dL (Negative); Leukocyte Esterase Ur Negative LEU/UL (Negative); Nitrate Urine Negative (Negative); Non Pathogenic Casts 0-2; Protein Urine 1+ mg/dL (Negative); RBC Urine 0-2 /hpf (0-2); Specific Grav Ur 1.027 (1.001-1.035); Squamous Epithelial Cell Urine None seen /hpf (Few); Urobilinogen Urine 0.2 mg/dL (<2.0); WBC Urine 0-5 /hpf
[2023-01-26] MEDS: ONDANSETRON INJ 4 MG/2 ML VIAL IV PUSH (18:28)
[2023-01-26 18:32] LABS: Alkaline Phosphatase 85 U/L (38-126); Anion Gap 13 mmol/L (8-16); Aspartate Amino Transferase 30 U/L (17-59); Bilirubin,Total 0.6 mg/dL (0.2-1.3); Blood Urea Nitrogen 15 mg/dL (9-20); Calcium 9.6 mg/dL (8.4-10.2); Carbon Dioxide 19 mmol/L (22-30); Chloride 108 mmol/L (98-107); Estimated CRCL calculation 160 ml/min; Estimated Glomerular Filt Rate > 60; Glucose 148 mg/dL (65-110); Lipase 64 U/L (23-300); Potassium 4.4 mmol/L (3.4-5.0); Sodium 140 mmol/L (137-145)
[2023-01-26 18:34] LABS: Amphetamine Screen Urine Negative (Negative); Barbiturate Screen Urine Negative (Negative); Benzodiazepines Screen Urine Negative (Negative); Cannabinoid Screen Urine Positive (Negative); Cocaine Screen Urine Negative (Negative); Methadone Screen Urine Negative (Negative); Opiate Screen Urine Negative (Negative); Phencyclidine Screen Urine Negative (Negative)
[2023-01-26 18:36] LABS: Alanine Aminotransferase 25 U/L (6-50)
[2023-01-26 18:39] LABS: Add Urine Microscopic? YES
--- NOTE | 2023-01-26 20:00 | PC.NURSE ---
Pt found in [facility] by this RN. Pt tells me he is ready to go home and feels better. I advised him he should wait for the CT read to ensure nothing emergent is wrong with him. He tells me he has had many CT scans and they always say the same thing, he's aware of the risk and wants to leave. Dr. Taveras is aware.
== END 2023-01-26 20:37 | disposition left against medical advice (07) ==
PROVIDERS: Emergency Provider General Practice
DX: R11.15 Cyclical vomiting syndrome unrelated to migraine (principal); D72.829 Elevated white blood cell count, unspecified; I10 Essential (primary) hypertension; F41.8 Other specified anxiety disorders; F17.210 Nicotine dependence, cigarettes, uncomplicated; F12.90 Cannabis use, unspecified, uncomplicated; Z53.29 Procedure and treatment not carried out because of patient's decision for other reasons
CPT/HCPCS: 36415; 74177; 80053; 80307; 81001; 83690; 85025; 93005; 96361; 96372; 96374; 96375; 99284; J1630; J2060; J2405; J7120; Q9967

== ENCOUNTER 2023-04-08 14:50 | Emergency (ER) | payer OTHER, SELFPAY ==
[2023-04-08] VITALS (20 sets, daily range): BP systolic 166–197; BP diastolic 99–108; PULSE 63–103; RESP 11–22; TEMP 36.8; O2SAT 95–100
--- NOTE | 2023-04-08 15:01 | ED.GENADULT ---
HPI - General Adult General Chief complaint: Nausea/Vomiting/Diarrhea Stated complaint: n/v Source: patient Mode of arrival: ambulatory Limitations: no limitations History of Present Illness HPI narrative: This is a 37-year-old male with PMH of cyclic vomiting syndrome, HTN who presents to the ED with chief complaint of nausea and vomiting beginning around of 0900 this morning. Reports he has limited amount of things that trigger this cycle he did smoke yesterday. Per nursing note he was given and Zofran 4 mg EN route by EMS. Patient states this has had little relief. Endorses generalized abdominal pain. reports that he has been given morphine and a benzo in the past which has provided great relief. Reports a doctor previously wanted to him to be on a case study for this tx regimen. Denies fevers, chills, problems with bowel movements, GI bleeding symptoms, urinary problems. Related Data Allergies Allergy/AdvReac Type Severity Reaction Status Date / Time cyclobenzaprine AdvReac Intermediate Dizziness Verified 04/08/23 15:11 Review of Systems Review of Systems: All systems as dictated in HPI [facility] Past Medical History Medical History Cyclic vomiting syndrome Depression with anxiety Hiatal hernia noted by EGD HTN (hypertension), benign Surgical History Surgical History Hx of hand surgery Family History Family History Other Lung cancer Social History Social History Social History: He lives at home with his and 2 sons. He smokes 3/4 of a pack per day for the past 17 years. He was a heavy alcohol user mostly on weekends but has quit alcohol in August of this year. He is a full code. Nominates his to be the individual who would make medical decisions for him if he is unable. He denies drug use except does smoke marijuana on occasion. Smoking packs per day: 1 Smoking cigarettes per day: 20.0 Years smoked: 20 Smoking pack-years: 20.00 Smoking status: Current every day smoker Tobacco type: cigarettes Alcohol intake: never Substance use: current Substance use type: marijuana Living arrangements: with family Gender identity (if verbalized by the patient): Male Spiritual care concerns: No Exam Narrative: GENERAL: Well-appearing, well-nourished, and in no acute distress. HEAD: Normocephalic, atraumatic. EYES: PERRLA and EOMI. ENT: Nares clear, no rhinorrhea or epistaxis. Mucous membranes moist. Oropharynx without tonsillar hypertrophy exudate or other lesions. NECK: Supple. No adenopathy or masses. CHEST: No respiratory distress. Clear to auscultation. No wheezes rales or rhonchi HEART: Regular rate and rhythm. No murmur heard. Normal peripheral pulses. ABDOMEN: Soft, nontender, nondistended, normal active bowel sounds. MSK: Normal range of motion. No edema. SKIN: Warm, dry, no rash. NEURO: Alert and oriented x3. No focal deficits. PSYCH: Normal mood and affect. Course Vital Signs Vital signs: Vital Signs Temperature 98.2 F 04/08/23 14:42 Pulse Rate 65 04/08/23 14:42 Respiratory Rate 12 04/08/23 14:42 Blood Pressure 178/99 H 04/08/23 14:42 Pulse Oximetry 99 04/08/23 14:42 Oxygen Delivery Room Air 04/08/23 14:42 Temperature 98.2 F 04/08/23 14:42 Pulse Rate 98 04/08/23 18:03 Respiratory Rate 21 H 04/08/23 18:03 Blood Pressure 166/108 H 04/08/23 17:31 Pulse Oximetry 95 04/08/23 18:03 Oxygen Delivery Room Air 04/08/23 14:42 Medical Decision Making [facility] Narrative Medical decision making narrative: This is a 37-year-old male who presents to the ED with chief complaint of vomiting. History of cyclic vomiting syndrome and smoked marijuana last night. Vitals are normal. Afebrile. He has diffuse abd
[2023-04-08] MEDS: SODIUM CHLORIDE 0.9% IV 1,000 ML 999 ML IV CONT (15:11)
[2023-04-08] MEDS: KETOROLAC 15 MG/ML VIAL (*BKC) IV PUSH (15:13)
[2023-04-08] MEDS: LORazepam INJ (*CRX) 2 MG/ML VIAL 1 MG IV PUSH (15:14)
[2023-04-08 15:49] LABS: Basophils Percent Auto 0.2 % (0.2-1.2); Hematocrit 46.5 % (42.0-52.0); Hemoglobin 15.4 g/dL (14.0-18.0); Immature Granulocyte Absolute 0.04 K/mm3 (0.00-0.031); Immature Granulocyte Percent A 0.3 % (0-0.5); Lymphocytes Absolute Auto 0.88 K/mm3 (0.9-3.2); Lymphocytes Percent Auto 6.2 % (18.3-44.2); Mean Corpuscular HGB Conc 33.1 g/dl (32-36); Mean Corpuscular Hemoglobin 28.5 pg (26-34); Mean Platelet Volume 12.2 fl (7.4-10.4); Monocytes Absolute Auto 0.3 K/mm3 (0.1-0.6); Neutrophils Absolute Auto 12.9 K/mm3 (1.3-6.7); Neutrophils Percent Auto 91.3 % (45.5-73.1); Platelet Count Result 246 k/mm3 (150-375); Red Blood Count 5.41 M/mm3 (4.6-6.20); Red Cell Distribution Width 13.1 % (11.5-14.5); White Blood Count 14.2 K/mm3 (4.5-10.0)
[2023-04-08 15:58] LABS: Alanine Aminotransferase 14 U/L (6-50); Albumin Level 4.7 g/dL (3.5-5.1); Alkaline Phosphatase 103 U/L (38-126); Anion Gap 12 mmol/L (8-16); Aspartate Amino Transferase 27 U/L (17-59); Bilirubin,Total 0.6 mg/dL (0.2-1.3); Blood Urea Nitrogen 14 mg/dL (9-20); Calcium 9.5 mg/dL (8.4-10.2); Carbon Dioxide 18 mmol/L (22-30); Chloride 110 mmol/L (98-107); Estimated CRCL calculation 156 ml/min; Estimated Glomerular Filt Rate > 60; Glucose 160 mg/dL (65-110); Lipase 77 U/L (23-300); Potassium 4.4 mmol/L (3.4-5.0); Sodium 140 mmol/L (137-145)
--- NOTE | 2023-04-08 16:48 | ECG_ITS ---
Measurements Intervals [place] Rate: 76 P: 43 CO: 155 QRS: 31 QRSD: 87 T: 20 QT: 403 QTc: 454 Interpretive Statements SINUS RHYTHM WITH MARKED SINUS ARRHYTHMIA NORMAL ECG COMPARED TO ECG 01/26/2023 18:05:22 NO SIGNIFICANT CHANGES Electronically Signed On 04-08-2023 20:23:27 NURSERY MANAGER by Wali Hobson D.O.
[2023-04-08] MEDS: MORPHINE SULFATE (*CRX) 4 MG/ML INJ IV PUSH (16:53)
--- NOTE | 2023-04-08 18:39 | PC.NURSE ---
Pt given 4oz of apple juice for PO challenge. Pt was able to drink fluids with no nausea or emesis at this time.
== END 2023-04-08 19:18 | disposition home or self-care (01) ==
PROVIDERS: Emergency Provider Physician Assistant
DX: R11.15 Cyclical vomiting syndrome unrelated to migraine (principal); I10 Essential (primary) hypertension; F17.210 Nicotine dependence, cigarettes, uncomplicated
CPT/HCPCS: 36415; 80053; 83690; 85025; 93005; 96361; 96374; 96375; 99284; J1885; J2060; J2270; J7030

== ENCOUNTER 2023-07-13 10:29 | Emergency (ER) | payer OTHER, SELFPAY ==
[2023-07-13 10:28] VITALS: BP 187/102; PULSE 69; RESP 23; TEMP 36.6; O2SAT 100
--- NOTE | 2023-07-13 10:44 | ED.NAVMDI ---
HPI - Nausea/Vomiting/Diarrhea General Chief complaint: Nausea/Vomiting/Diarrhea Stated complaint: n/v Time Seen by Provider: 07/13/23 10:45 Source: patient Mode of arrival: ambulatory Limitations: no limitations History of Present Illness HPI Narrative: Jonny is a 37-year-old male patient presenting to the ER today with complaints of nausea and vomiting since 6:00 a.m. this morning. He reports he has vomited over 20 times today. History of cyclic vomiting syndrome. Related Data Allergies Allergy/AdvReac Type Severity Reaction Status Date / Time cyclobenzaprine AdvReac Intermediate Dizziness Verified 07/13/23 10:36 Review of Systems Review of Systems: Pertinent positives per HPI. Patient denies any fever, chills, rash, headache, visual changes, dizziness, cough, runny nose, sore throat, shortness of breath, chest pain, palpitations, nausea, vomiting, diarrhea, constipation, abdominal pain, or any urinary issues. [facility] Past Medical History Medical History Cyclic vomiting syndrome Depression with anxiety Hiatal hernia noted by EGD HTN (hypertension), benign Surgical History Surgical History Hx of hand surgery Family History Family History Other Lung cancer Social History Social History Social History: He lives at home with his and 2 sons. He smokes 3/4 of a pack per day for the past 17 years. He was a heavy alcohol user mostly on weekends but has quit alcohol in August of this year. He is a full code. Nominates his to be the individual who would make medical decisions for him if he is unable. He denies drug use except does smoke marijuana on occasion. Smoking packs per day: 1 Smoking cigarettes per day: 20.0 Years smoked: 20 Smoking pack-years: 20.00 Smoking status: Current every day smoker Tobacco type: cigarettes Alcohol intake: never Substance use: current Substance use type: marijuana Living arrangements: with family Gender identity (if verbalized by the patient): Male Spiritual care concerns: No Comments At the time of my signature, I reviewed and agree with the nursing past medical, surgical, social, and family history. There is no relevant family history pertinent to the patient complaint. Exam Narrative: General: Well-developed, well nourished, in no apparent distress. Head: Normocephalic, atraumatic. Cardio: Regular rate and rhythm, s1 and s2 normal, no murmur appreciated. Resp: Clear to auscultation bilaterally, no rhonchi, rales, wheezing or rubs. Abdomen: Soft, pliable, bowel sounds present in all quadrants, diffuse abdomen tender to palpation, no organomegly, no CVAT tenderness. Course Course Emergency Course: Portions of this record may have been created with voice recognition software. Vital Signs Vital signs: Vital Signs Temperature 36.6 C 07/13/23 10:28 Pulse Rate 69 07/13/23 10:28 Respiratory Rate 23 H 07/13/23 10:28 Blood Pressure 187/102 H 07/13/23 10:28 Pulse Oximetry 100 07/13/23 10:28 Oxygen Delivery Room Air 07/13/23 10:28 Temperature 36.6 C 07/13/23 10:28 Pulse Rate 69 07/13/23 10:28 Respiratory Rate 23 H 07/13/23 10:28 Blood Pressure 187/102 H 07/13/23 10:28 Pulse Oximetry 100 07/13/23 10:28 Oxygen Delivery Room Air 07/13/23 10:28 Vital signs reviewed MDM - Nausea/Vomiting/Diarrhea MDM Narrative Medical decision making narrative: At the time of visit patient is resting comfortably on the exam table. Patient appears to be nontoxic. Labs: CBC shows white blood cell count of 16.2, H&H 15.4/48, chemistry shows sodium level 142, potassium 3.8, chloride 110, CO2 of 21, BUN is 17, creatinine 0.8, GFR is greater than 60, glucose is 153, liver function test within nor
[2023-07-13 11:12] LABS: Basophils Absolute Auto 0.1 K/mm3 (0.0-0.1); Basophils Percent Auto 0.4 % (0.2-1.2); Hemoglobin 15.4 g/dL (14.0-18.0); Immature Granulocyte Absolute 0.07 K/mm3 (0.00-0.031); Immature Granulocyte Percent A 0.4 % (0-0.5); Lymphocytes Absolute Auto 1.22 K/mm3 (0.9-3.2); Lymphocytes Percent Auto 7.5 % (18.3-44.2); Mean Corpuscular HGB Conc 32.1 g/dl (32-36); Mean Corpuscular Hemoglobin 28.3 pg (26-34); Mean Corpuscular Volume 88.1 fl (80-100); Mean Platelet Volume 12.4 fl (7.4-10.4); Monocytes Absolute Auto 0.5 K/mm3 (0.1-0.6); Monocytes Percent Auto 2.8 % (2.6-8.5); Neutrophils Absolute Auto 14.4 K/mm3 (1.3-6.7); Neutrophils Percent Auto 88.9 % (45.5-73.1); Platelet Count Result 270 k/mm3 (150-375); Red Blood Count 5.45 M/mm3 (4.6-6.20); Red Cell Distribution Width 12.6 % (11.5-14.5); White Blood Count 16.2 K/mm3 (4.5-10.0)
[2023-07-13] MEDS: SODIUM CHLORIDE 0.9% IV 1,000 ML 999 ML IV CONT (11:12)
[2023-07-13] MEDS: ONDANSETRON INJ 4 MG/2 ML VIAL IV PUSH (11:13)
[2023-07-13 11:26] LABS: Appearance Urine Clear (Clear); Bacteria Urine None Seen /hpf; Bilirubin Urine 1+ (Negative); Blood Urine Negative (Negative); Color Urine Dark Yellow (Yellow); Glucose Urine UA Negative (Negative); Ketones Urine 3+ mg/dL (Negative); Leukocyte Esterase Ur Trace LEU/UL (Negative); Mucus Urine Present /lpf; Need Manual Microscopic Reviewed; Nitrate Urine Negative (Negative); Protein Urine 1+ mg/dL (Negative); RBC Urine 0-2 /hpf (0-2); Squamous Epithelial Cell Urine Occasional /hpf (Few); WBC Urine 0-5 /hpf
[2023-07-13 11:26] LABS: Alanine Aminotransferase 13 U/L (6-50); Albumin Level 4.7 g/dL (3.5-5.1); Alkaline Phosphatase 110 U/L (38-126); Anion Gap 11 mmol/L (8-16); Aspartate Amino Transferase 25 U/L (17-59); Bilirubin,Total 0.5 mg/dL (0.2-1.3); Blood Urea Nitrogen 17 mg/dL (9-20); Calcium 9.7 mg/dL (8.4-10.2); Carbon Dioxide 21 mmol/L (22-30); Chloride 110 mmol/L (98-107); Estimated CRCL calculation 137 ml/min; Estimated Glomerular Filt Rate > 60; Glucose 157 mg/dL (65-110); Lipase 95 U/L (23-300); Potassium 3.8 mmol/L (3.4-5.0); Sodium 142 mmol/L (137-145)
[2023-07-13 11:43] LABS: Add Urine Microscopic? YES; Specific Grav Ur 1.036 (1.001-1.035)
[2023-07-13] MEDS: MORPHINE SULFATE (*CRX) 4 MG/ML INJ IV PUSH ×2 (11:43→16:19)
[2023-07-13 11:45] VITALS: PULSE 69; RESP 20; O2SAT 99
[2023-07-13 13:39] VITALS: BP 195/111; PULSE 69; RESP 14; O2SAT 99
[2023-07-13] MEDS: KETOROLAC 30 MG/ML VIAL (*BKC) IV PUSH (13:43)
[2023-07-13] MEDS: LORazepam INJ (*CRX) 2 MG/ML VIAL 1 MG IV PUSH ×2 (13:45→16:22)
[2023-07-13] MEDS: LACTATED RINGERS 1,000 ML 999 ML IV CONT (13:46)
[2023-07-13 14:22] VITALS: BP 191/93; PULSE 67; RESP 18; O2SAT 96
[2023-07-13] MEDS: METOCLOPRAMIDE HCL INJ 10 MG/2 ML VIAL IV PUSH (16:18)
[2023-07-13 16:23] VITALS: BP 179/97; PULSE 68; RESP 18; O2SAT 97
[2023-07-13 16:33] VITALS: BP 165/94; PULSE 92; RESP 17; O2SAT 96
== END 2023-07-13 17:55 | disposition home or self-care (01) ==
PROVIDERS: Emergency Provider Nurse Practitioner Family
DX: R11.15 Cyclical vomiting syndrome unrelated to migraine (principal); I10 Essential (primary) hypertension; K44.9 Diaphragmatic hernia without obstruction or gangrene; F17.210 Nicotine dependence, cigarettes, uncomplicated
CPT/HCPCS: 36415; 80053; 81001; 83690; 85025; 96361; 96374; 96375; 96376; 99284; J1885; J2060; J2270; J2405; J2765; J7030; J7120